=== PATIENT | male | born 2000 | race Caucasian/White ===

== ENCOUNTER 2024-11-22 00:36 | Emergency (ER) | payer OTHER ==
[~2024-11-22] VITALS: Ht 188 cm; Wt 100.9 kg
[2024-11-22 00:39] VITALS: TEMP 98.2
[2024-11-22] MEDS ORDERED: LIDOCAINE 2% MDV 20 ML VIAL As Ordered ONE (05:26)
[2024-11-22] MEDS: DERMABOND TOPICAL SKIN ADHESIVE TOP ONE (05:55)
[2024-11-22] MEDS ORDERED: CEPH500C PO (05:58)
[2024-11-22 06:21] VITALS: BP 135/67; O2SAT 98
== END 2024-11-22 06:23 | disposition home or self-care (01) ==
LOC: M ED 00:36
DX: S81.811A Laceration without foreign body, right lower leg, initial encounter (principal); W01.198A Fall on same level from slipping, tripping and stumbling with subsequent striking against other object, initial encounter; Z79.2 Long term (current) use of antibiotics; Y92.9 Unspecified place or not applicable; Y93.89 Activity, other specified; Y99.9 Unspecified external cause status